=== PATIENT | male | born 1965 | race Caucasian/White ===

== ENCOUNTER 2016-11-30 22:20 | Emergency (ER) | payer OTHER ==
[~2016-11-30] VITALS: Ht 172.7 cm; Wt 102.3 kg
[2016-11-30 22:27] VITALS: TEMP 37; Ht 172.7 cm; Wt 102.3 kg
[2016-11-30] MEDS ORDERED: ONDANSETRON 4MG OD TAB PO STA (22:43)
[2016-11-30] MEDS ORDERED: OXYCODONE HCL IR 5 MG TAB (IMMEDIATE RELEASE) PO STA (22:43)
[2016-11-30] MEDS ORDERED: IBUP-1050 PO (22:46)
[2016-11-30] MEDS ORDERED: NAPR-1169 PO (22:46)
[2016-11-30] MEDS ORDERED: PRLSR20 PO (22:46)
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
[2016-12-01] MEDS ORDERED: OXYCODONE IR HOME PACK PO ONE (01:45)
[2016-12-01 02:08] VITALS: BP 144/91; PULSE 92; O2SAT 96
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
== END 2016-12-01 02:09 | disposition home or self-care (01) ==
LOC: EDBD 22:20 → C.EDC 22:21
DX: S09.90XA Unspecified injury of head, initial encounter (principal); S16.1XXA Strain of muscle, fascia and tendon at neck level, initial encounter; S80.02XA Contusion of left knee, initial encounter; S40.012A Contusion of left shoulder, initial encounter; S39.012A Strain of muscle, fascia and tendon of lower back, initial encounter; V49.50XA Passenger injured in collision with unspecified motor vehicles in traffic accident, initial encounter; Y92.488 Other paved roadways as the place of occurrence of the external cause; F17.200 Nicotine dependence, unspecified, uncomplicated

== ENCOUNTER 2016-12-01 22:43 | Emergency (ER) | payer OTHER ==
[~2016-12-01] VITALS: Ht 165.1 cm; Wt 102.5 kg
[~2016-12-01 22:43] MED LIST: IBUP-1050 PO; NAPR-1169 PO; PRLSR20 PO
[2016-12-01 22:55] VITALS: TEMP 36.6; Ht 165.1 cm; Wt 102.5 kg
[2016-12-01] MEDS ORDERED: KETOROLAC TROMETHAMINE 60 MG/2 ML VIAL IM STA (23:13)
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
[2016-12-02] MEDS ORDERED: NAPROSYN HOME PACK 250 MG VIAL PO ONE (00:15)
[2016-12-02 00:19] VITALS: BP 144/102; PULSE 81; O2SAT 98
== END 2016-12-02 00:20 | disposition home or self-care (01) ==
LOC: EDBD 22:43 → C.EDB 22:44
DX: M54.2 Cervicalgia (principal); G89.29 Other chronic pain; I10 Essential (primary) hypertension; Z90.49 Acquired absence of other specified parts of digestive tract; F17.210 Nicotine dependence, cigarettes, uncomplicated; Z79.899 Other long term (current) drug therapy